=== PATIENT | female | born 1975 | race Caucasian/White ===

== ENCOUNTER 2016-07-04 22:45 | Emergency (ER) | payer MEDICAID ==
[~2016-07-04 22:45] MED LIST: HYDROCODONE-APA1 TAB PO; INDOCIN25 MG PO; LEVAQUIN500 MG PO; MUCINEX600 MG PO; NEURONTIN 300300 MG PO; NICODERM C1 PATCH .3 TRANSDERM; PHENERGAN25 M1 PO; PROAIR HFA8.5 GM INH
== END 2016-07-05 00:05 | disposition home or self-care (01) ==
LOC: D.ER 22:45
DX: S80.02XA Contusion of left knee, initial encounter (principal); W19.XXXA Unspecified fall, initial encounter; Y93.89 Activity, other specified; Y92.019 Unspecified place in single-family (private) house as the place of occurrence of the external cause; F17.200 Nicotine dependence, unspecified, uncomplicated; J45.909 Unspecified asthma, uncomplicated

== ENCOUNTER 2016-10-24 13:47 | Emergency (ER) | payer MEDICAID ==
[2016-10-24 14:55] LABS: APPEARANCE CLEAR (CLEAR); BILIRUBIN NEGATIVE (NEGATIVE); COLOR YELLOW (YELLOW); GLUCOSE NEGATIVE (NEGATIVE); KETONE NEGATIVE (NEGATIVE); LEUKOCYTE ESTERASE NEGATIVE (NEGATIVE); NITRITE NEGATIVE (NEGATIVE); PROTEIN NEGATIVE (NEGATIVE); UROBILINOGEN NORMAL (NORMAL)
[2016-10-24 15:23] LABS: BASOPHILS 0.4 % (0-2); EOSINOPHILS 1.1 % (0-7); HEMATOCRIT 46.6 % (36.0-48.0); HEMOGLOBIN 15.5 g/dL (12-16); IMMATURE GRANULOCYTES 0.4 % (0-5); MCH 32.9 pg (26.0-34.0); MCHC 33.3 g/dL (31.0-37.0); MCV 98.9 fL (80.0-100.0); MEAN PLATELET VOLUME 10.4 fL (7.4-10.4); MONOCYTES 7.5 % (2-11); NEUTROPHILS 55.6 % (40-80); PLATELET COUNT 246 10x3/uL (130-400); RBC 4.71 10x6/uL (4.00-5.40); RDW 13.5 % (11.5-14.5); WBC 7.5 10x3/uL (4.8-10.8)
[2016-10-24 16:04] LABS: ALBUMIN 3.9 g/dL (3.4-5.0); ALKALINE PHOSPHATASE 103 U/L (46-116); ALT (SGPT) 30 U/L (10-68); BILIRUBIN - TOTAL 0.54 mg/dL (0.2-1.3); CALC OSMOLALITY 272 mosm/kg (275-300); CALCIUM 9.1 mg/dL (8.5-10.1); CARBON DIOXIDE 26.8 mmol/L (21.0-32.0); CHLORIDE - SERUM 103 mmol/L (98-107); CREATININE - SERUM 0.9 mg/dL (0.6-1.3); GLUCOSE 90 mg/dL (74-106); POTASSIUM - SERUM 4.1 mmol/L (3.5-5.1); PROTEIN - SERUM 7.4 g/dL (6.4-8.2); SODIUM 137 mmol/L (136-145); UREA NITROGEN 11 mg/dL (7-18); eGFR NON AFRICAN AMERICAN 73 mL/min (90-120)
[2016-10-24 16:16] LABS: CREATINE KINASE 67 UL (21-215)
[2016-10-24 16:17] LABS: TROPONIN-I < 0.017 ng/mL (0.000-0.060)
[2016-10-24 16:31] LABS: UDS - AMPHET NEGATIVE QUAL (NEGATIVE); UDS - BARB NEGATIVE QUAL (NEGATIVE); UDS - BENZO POSITIVE QUAL (NEGATIVE); UDS - COCAINE NEGATIVE QUAL (NEGATIVE); UDS - METH NEGATIVE QUAL (NEGATIVE); UDS - OPIATE POSITIVE QUAL (NEGATIVE); UDS - PCP NEGATIVE QUAL (NEGATIVE); UDS - THC POSITIVE QUAL (NEGATIVE)
== END 2016-10-24 17:27 | disposition home or self-care (01) ==
LOC: D.ER 13:47
PROVIDERS: Emergency Medicine
DX: R07.89 Other chest pain (principal); S20.219A Contusion of unspecified front wall of thorax, initial encounter; W18.2XXA Fall in (into) shower or empty bathtub, initial encounter; Y93.89 Activity, other specified; Y92.012 Bathroom of single-family (private) house as the place of occurrence of the external cause; R55 Syncope and collapse; J45.909 Unspecified asthma, uncomplicated; F17.200 Nicotine dependence, unspecified, uncomplicated; I44.5 Left posterior fascicular block

== ENCOUNTER → 2016-12-07 14:46 | Outpatient (CLI) | payer MEDICAID | END | disposition home or self-care (01) | LOC: D.MAMMO 10:00 | DX: O92.6 Galactorrhea (principal) ==

== ENCOUNTER 2017-08-31 12:21 | Emergency (ER) | payer MEDICAID | END 2017-08-31 13:43 | disposition home or self-care (01) | LOC: D.ER 12:21 | DX: S93.401A Sprain of unspecified ligament of right ankle, initial encounter (principal); W10.9XXA Fall (on) (from) unspecified stairs and steps, initial encounter; Y93.89 Activity, other specified; Y92.019 Unspecified place in single-family (private) house as the place of occurrence of the external cause; F17.200 Nicotine dependence, unspecified, uncomplicated ==

== ENCOUNTER 2017-11-15 21:56 | Emergency (ER) | payer MEDICAID ==
[~2017-11-15] VITALS: Ht 162.6 cm; Wt 109.1 kg
[2017-11-15 22:00] VITALS: Ht 162.6 cm; Wt 109.1 kg
[2017-11-15] MEDS ORDERED: EFFEXOR75 MG PO (22:02)
[2017-11-15] MEDS ORDERED: XANAX1 MG PO (22:03)
[2017-11-15] MEDS ORDERED: ULTRAM50 MG PO ×2 (22:52→22:57)
[2017-11-15] MEDS ORDERED: TYLENOL W/CODEI1 TAB PO (22:52)
[2017-11-15 23:28] VITALS: BP 152/78
== END 2017-11-15 23:28 | disposition home or self-care (01) ==
LOC: D.ER 21:56
DX: S06.0X1A Concussion with loss of consciousness of 30 minutes or less, initial encounter (principal); W01.0XXA Fall on same level from slipping, tripping and stumbling without subsequent striking against object, initial encounter; Y93.89 Activity, other specified; Y92.019 Unspecified place in single-family (private) house as the place of occurrence of the external cause; S90.812A Abrasion, left foot, initial encounter; S90.32XA Contusion of left foot, initial encounter; F17.200 Nicotine dependence, unspecified, uncomplicated

== ENCOUNTER 2017-11-17 22:57 | Emergency (ER) | payer MEDICAID ==
[~2017-11-17] VITALS: Ht 162.6 cm; Wt 98.2 kg
[~2017-11-17 22:57] MED LIST changes: +EFFEXOR75 MG PO; +TYLENOL W/CODEI1 TAB PO; +ULTRAM50 MG PO; +XANAX1 MG PO
[2017-11-17 23:18] VITALS: Ht 162.6 cm; Wt 98.2 kg
[2017-11-18] MEDS ORDERED: AMBIEN10 MG PO (01:09)
[2017-11-18] MEDS ORDERED: TORADOL10 MG PO (01:09)
[2017-11-18 01:39] VITALS: BP 108/65
== END 2017-11-18 01:39 | disposition home or self-care (01) ==
LOC: D.ER 22:57
DX: R51 Headache (principal); F17.200 Nicotine dependence, unspecified, uncomplicated

== ENCOUNTER 2018-03-05 15:17 | Emergency (ER) | payer MEDICAID ==
[~2018-03-05] VITALS: Ht 162.6 cm; Wt 95.5 kg
[~2018-03-05 15:17] MED LIST changes: +AMBIEN10 MG PO; +TORADOL10 MG PO
[2018-03-05 15:48] VITALS: Ht 162.6 cm; Wt 95.5 kg
[2018-03-05] MEDS ORDERED: ROBAXIN500 MG PO (17:46)
[2018-03-05] MEDS ORDERED: ULTRAM50 MG PO (17:46)
[2018-03-05 18:42] VITALS: BP 128/078
== END 2018-03-05 18:43 | disposition home or self-care (01) ==
LOC: D.ER 15:17
DX: S60.051A Contusion of right little finger without damage to nail, initial encounter (principal); X58.XXXA Exposure to other specified factors, initial encounter; Y93.89 Activity, other specified; Y92.019 Unspecified place in single-family (private) house as the place of occurrence of the external cause; S93.402A Sprain of unspecified ligament of left ankle, initial encounter

== ENCOUNTER 2018-07-15 07:51 | Emergency (ER) | payer MEDICAID ==
[~2018-07-15] VITALS: Ht 162.6 cm; Wt 97.7 kg
[~2018-07-15 07:51] MED LIST changes: +ROBAXIN500 MG PO
[2018-07-15 08:00] VITALS: Ht 162.6 cm; Wt 97.7 kg
[2018-07-15] MEDS ORDERED: HYDROCODON-ACE1 EAC2 PO (08:44)
[2018-07-15 09:01] VITALS: BP 142/82
== END 2018-07-15 09:02 | disposition home or self-care (01) ==
LOC: D.ER 07:51
DX: S99.922A Unspecified injury of left foot, initial encounter (principal); W18.31XA Fall on same level due to stepping on an object, initial encounter; Y93.89 Activity, other specified; Y92.019 Unspecified place in single-family (private) house as the place of occurrence of the external cause

== ENCOUNTER 2018-07-21 11:12 | Emergency (ER) | payer MEDICAID ==
[~2018-07-21] VITALS: Ht 162.6 cm; Wt 97.7 kg
[~2018-07-21 11:12] MED LIST changes: +HYDROCODON-ACE1 EAC2 PO
[2018-07-21 11:27] VITALS: Ht 162.6 cm; Wt 97.7 kg
[2018-07-21] MEDS ORDERED: EFFEXOR XR150 MG PO (11:30)
[2018-07-21] MEDS ORDERED: ACETAMINOPHEN500 M1 PO (12:31)
[2018-07-21 12:45] VITALS: BP 133/82
== END 2018-07-21 12:46 | disposition home or self-care (01) ==
LOC: D.ER 11:12
DX: S93.602A Unspecified sprain of left foot, initial encounter (principal); X50.1XXA Overexertion from prolonged static or awkward postures, initial encounter; Y93.89 Activity, other specified; Y92.89 Other specified places as the place of occurrence of the external cause

== ENCOUNTER 2019-01-27 13:04 | Emergency (ER) | payer MEDICAID ==
[~2019-01-27] VITALS: Ht 162.6 cm; Wt 98.2 kg
[~2019-01-27 13:04] MED LIST changes: +ACETAMINOPHEN500 M1 PO; +EFFEXOR XR150 MG PO
[2019-01-27 13:07] VITALS: Ht 162.6 cm; Wt 98.2 kg
[2019-01-27 13:34] LABS: APPEARANCE CLEAR (CLEAR); BACTERIA MANY /hpf (NEGATIVE); BILIRUBIN NEGATIVE (NEGATIVE); COLOR YELLOW (YELLOW); EPITHELIAL CELLS 0-5 /hpf (0-5); GLUCOSE NEGATIVE (NEGATIVE); KETONE NEGATIVE (NEGATIVE); NITRITE POSITIVE (NEGATIVE); PROTEIN NEGATIVE (NEGATIVE); RED CELLS - URINE 0-5 /hpf (0-5); UROBILINOGEN NORMAL (NORMAL)
[2019-01-27] MEDS ORDERED: NEURONTIN 300300 MG PO (13:52)
[2019-01-27] MEDS ORDERED: MACROBID100 MG PO (13:52)
[2019-01-27] MEDS ORDERED: HYDROCODON-ACE1 EAC7 PO (13:52)
[2019-01-27] MEDS ORDERED: VALTREX1000 MG PO (13:52)
[2019-01-27 14:14] VITALS: BP 145/99
== END 2019-01-27 14:14 | disposition home or self-care (01) ==
LOC: D.ER 13:04
PROVIDERS: Family Medicine
DX: B02.9 Zoster without complications (principal); N39.0 Urinary tract infection, site not specified

== ENCOUNTER 2019-02-19 20:36 | Emergency (ER) | payer MEDICAID ==
[~2019-02-19] VITALS: Ht 162.6 cm; Wt 95.5 kg
[~2019-02-19 20:36] MED LIST changes: +HYDROCODON-ACE1 EAC7 PO; +MACROBID100 MG PO; +VALTREX1000 MG PO
[2019-02-19 21:03] VITALS: Ht 162.6 cm; Wt 95.5 kg
[2019-02-19 23:30] LABS: HEMATOCRIT 42.1 % (36.0-48.0); LYMPHOCYTES 39.2 % (15-50); MCH 32.5 pg (26.0-34.0); MCHC 33.3 g/dL (31.0-37.0); MCV 97.7 fL (80.0-100.0); MEAN PLATELET VOLUME 10.3 fL (7.4-10.4); PLATELET COUNT 191 10x3/uL (130-400); RBC 4.31 10x6/uL (4.00-5.40); RDW 13.6 % (11.5-14.5); WBC 6.9 10x3/uL (4.8-10.8)
[2019-02-19 23:37] LABS: ANION GAP 8.8 mmol/L (8-16); CALCIUM 8.5 mg/dL (8.5-10.1); CARBON DIOXIDE 32.8 mmol/L (21.0-32.0); POTASSIUM - SERUM 3.6 mmol/L (3.5-5.1)
[2019-02-19 23:42] LABS: APPEARANCE HAZY (CLEAR); COLOR STRAW (YELLOW)
[2019-02-19 23:43] LABS: ALBUMIN 3.5 g/dL (3.4-5.0); BILIRUBIN - TOTAL 0.24 mg/dL (0.2-1.3); INR 0.92 (0.85-1.17); PROTIME 11.9 SECONDS (11.6-15.0)
[2019-02-19 23:43] LABS: BILIRUBIN NEGATIVE (NEGATIVE); GLUCOSE NEGATIVE (NEGATIVE); KETONE NEGATIVE (NEGATIVE); NITRITE POSITIVE (NEGATIVE); PROTEIN TRACE mg/dL (NEGATIVE); SPECIFIC GRAVITY 1.005 (1.005-1.020); UROBILINOGEN NORMAL (NORMAL)
[2019-02-19 23:44] LABS: BACTERIA MANY /hpf (NEGATIVE); EPITHELIAL CELLS 0-5 /hpf (0-5); RED CELLS - URINE 0-5 /hpf (0-5); WHITE CELLS - URINE 0-5 /hpf (NEGATIVE)
[2019-02-20] MEDS ORDERED: CYCLOBENZAPRINE10 MG PO (00:01)
[2019-02-20] MEDS ORDERED: ACETAMINOPHEN500 M1 PO (00:01)
[2019-02-20] MEDS ORDERED: MEDROL DOSE PACK4 MG PO (00:01)
[2019-02-20 01:13] VITALS: BP 132/89
== END 2019-02-20 01:12 | disposition home or self-care (01) ==
LOC: D.ER 20:36
PROVIDERS: Family Medicine
DX: R51 Headache (principal); M54.2 Cervicalgia; M25.561 Pain in right knee; V89.2XXA Person injured in unspecified motor-vehicle accident, traffic, initial encounter

== ENCOUNTER 2019-09-01 10:53 | Emergency (ER) | payer MEDICAID ==
[~2019-09-01] VITALS: Ht 162.6 cm; Wt 97.7 kg
[~2019-09-01 10:53] MED LIST changes: +CYCLOBENZAPRINE10 MG PO; +MEDROL DOSE PACK4 MG PO
[2019-09-01 11:01] VITALS: Ht 162.6 cm; Wt 97.7 kg
[2019-09-01 11:57] LABS: BASOPHILS 0.3 % (0-2); HEMATOCRIT 43.4 % (36.0-48.0); HEMOGLOBIN 13.8 g/dL (12-16); IMMATURE GRANULOCYTES 0.5 % (0-5); LYMPHOCYTES 21.1 % (15-50); MCH 31.3 pg (26.0-34.0); MCHC 31.8 g/dL (31.0-37.0); MCV 98.4 fL (80.0-100.0); MEAN PLATELET VOLUME 10.3 fL (7.4-10.4); MONOCYTES 5.9 % (2-11); NEUTROPHILS 70.2 % (40-80); RBC 4.41 10x6/uL (4.00-5.40); WBC 9.6 10x3/uL (4.8-10.8)
[2019-09-01 12:32] LABS: CALC OSMOLALITY 273 mosm/kg (275-300); CARBON DIOXIDE 28.6 mmol/L (21.0-32.0); CHLORIDE - SERUM 101 mmol/L (98-107); GLUCOSE 118 mg/dL (74-106); POTASSIUM - SERUM 4.3 mmol/L (3.5-5.1); SODIUM 137 mmol/L (136-145); UREA NITROGEN 9 mg/dL (7-18); eGFR NON AFRICAN AMERICAN 64 mL/min (90-120)
[2019-09-01 12:43] LABS: PLATELET COUNT 243 10x3/uL (130-400)
[2019-09-01 12:49] LABS: ALBUMIN 3.3 g/dL (3.4-5.0); ALKALINE PHOSPHATASE 100 U/L (30-120); ALT (SGPT) 41 U/L (10-68); BILIRUBIN - TOTAL 0.35 mg/dL (0.2-1.3); CKMB 0.8 U/L (0.0-3.6); CREATINE KINASE 81 UL (21-215); MAGNESIUM - SERUM 2.3 mg/dL (1.8-2.4); PRO BNP 40 pg/mL (0-125); PROTEIN - SERUM 6.9 g/dL (6.4-8.2)
[2019-09-01] MEDS ORDERED: CYCLOBENZAPRINE10 MG PO (13:16)
[2019-09-01 13:37] VITALS: BP 142/80
== END 2019-09-01 13:38 | disposition home or self-care (01) ==
LOC: D.ER 10:53
PROVIDERS: Family Medicine
DX: R22.43 Localized swelling, mass and lump, lower limb, bilateral (principal); Z87.898 Personal history of other specified conditions; S39.012A Strain of muscle, fascia and tendon of lower back, initial encounter; L40.50 Arthropathic psoriasis, unspecified

== ENCOUNTER 2020-08-28 05:17 | Emergency (ER) | payer OTHER ==
[~2020-08-28] VITALS: Ht 162.6 cm; Wt 100.0 kg
[2020-08-28 05:21] VITALS: Ht 162.6 cm; Wt 100.0 kg
[2020-08-28 06:02] LABS: HCG URINE NEGATIVE (NEGATIVE)
[2020-08-28 06:04] LABS: BILIRUBIN NEGATIVE (NEGATIVE); KETONE NEGATIVE (NEGATIVE); NITRITE NEGATIVE (NEGATIVE); UROBILINOGEN NORMAL mg/dL (< 2)
[2020-08-28 06:20] LABS: ANION GAP 13.8 mmol/L (8-16); BASOPHILS 0.4 % (0-2); CALCIUM 9.3 mg/dL (8.5-10.1); CREATININE - SERUM 1.2 mg/dL (0.6-1.3); EOSINOPHILS 1.8 % (0-7); HEMATOCRIT 43.5 % (36.0-48.0); HEMOGLOBIN 14.2 g/dL (12-16); IMMATURE GRANULOCYTES 0.3 % (0-5); LYMPHOCYTE ABS# 1.78 10x3/uL (1.18-3.74); LYMPHOCYTES 22.5 % (15-50); MCH 30.7 pg (26.0-34.0); MCHC 32.6 g/dL (31.0-37.0); MEAN PLATELET VOLUME 11.6 fL (7.4-10.4); MONOCYTES 6.7 % (2-11); NEUTROPHILS 68.3 % (40-80); PLATELET COUNT 219 10x3/uL (130-400); RBC 4.63 10x6/uL (4.00-5.40); RDW 13.6 % (11.5-14.5); WBC 7.9 10x3/uL (4.8-10.8)
[2020-08-28 06:26] LABS: ALBUMIN 3.4 g/dL (3.4-5.0); BILIRUBIN - TOTAL 0.31 mg/dL (0.2-1.3); POTASSIUM - SERUM 3.8 mmol/L (3.5-5.1)
[2020-08-28 07:07] VITALS: BP 108/72
== END 2020-08-28 08:55 | disposition home or self-care (01) ==
LOC: D.ER 05:17
PROVIDERS: Emergency Medicine
DX: R10.32 Left lower quadrant pain (principal); R11.2 Nausea with vomiting, unspecified

== ENCOUNTER 2020-10-02 11:55 | Emergency (ER) | payer OTHER ==
[~2020-10-02] VITALS: Ht 162.6 cm; Wt 102.7 kg
[2020-10-02 11:58] VITALS: BP 148/72; Ht 162.6 cm; Wt 102.7 kg
[2020-10-02 12:36] LABS: BASOPHILS 1.3 % (0-2); EOSINOPHILS 2.2 % (0-7); HEMATOCRIT 41.7 % (36.0-48.0); LYMPHOCYTES 23.5 % (15-50); MCH 31.6 pg (26.0-34.0); MCHC 33.6 g/dL (31.0-37.0); MCV 94.1 fL (80.0-100.0); MEAN PLATELET VOLUME 8.7 fL (7.4-10.4); MONOCYTES 6.5 % (2-11); NEUTROPHILS 66.5 % (40-80); PLATELET COUNT 224 10x3/uL (130-400); RBC 4.43 10x6/uL (4.00-5.40); RDW 14.2 % (11.5-14.5); WBC 8.9 10x3/uL (4.8-10.8)
[2020-10-02 12:39] LABS: BILIRUBIN NEGATIVE (NEGATIVE); KETONE NEGATIVE (NEGATIVE); NITRITE NEGATIVE (NEGATIVE); UROBILINOGEN NORMAL mg/dL (< 2)
[2020-10-02 12:45] LABS: ANION GAP 8.1 mmol/L (8-16); CALCIUM 9.3 mg/dL (8.5-10.1); CREATININE - SERUM 0.9 mg/dL (0.6-1.3); POTASSIUM - SERUM 4.1 mmol/L (3.5-5.1)
[2020-10-02 12:52] LABS: ALBUMIN 3.5 g/dL (3.4-5.0); BILIRUBIN - TOTAL 0.31 mg/dL (0.2-1.3); PROTEIN - SERUM 6.9 g/dL (6.4-8.2)
[2020-10-02] MEDS ORDERED: BENTYL 20 MG TA20 MG PO (15:01)
[2020-10-02] MEDS ORDERED: ZOFRAN ODT4 MG/UDTAB PO (15:01)
== END 2020-10-02 16:14 | disposition home or self-care (01) ==
LOC: D.ER 11:55
PROVIDERS: Emergency Medicine
DX: R10.30 Lower abdominal pain, unspecified (principal); N83.202 Unspecified ovarian cyst, left side